=== PATIENT | female | born 1975 | race Hispanic/Latino ===

== ENCOUNTER 2019-01-10 03:38 | Emergency (ER) | payer SELFPAY ==
[~2019-01-10] VITALS: Ht 160 cm; Wt 73.0 kg
[~2019-01-10 03:38] MED LIST: LISINOPRIL10 MG PO
--- OUTSIDE RECORDS SUMMARY | 2019-01-10 03:40 | XMS REPORT | Continuity of Care Document ---
Author Author [facility] Address Unknown Phone Unavailable Care Team Providers Care Feller Seam Operator Name Role Phone [employer] Unavailable Unavailable Problems Problem Status Onset Date Classification Date Reported Comments Source TINEA CORPORIS Inactive 06/19/2014 Condition 06/19/2014 [facility] VIRAL ILLNESS Active 06/19/2014 Condition 06/19/2014 [facility] ALLERGIC RHINITIS Active 06/19/2014 Condition 06/19/2014 [facility] HYPERTENSION Active 06/19/2014 Condition 06/19/2014 [facility] Medications Medication Details Route Status Patient Instructions Ordering Provider Order Date Source LISINOPRIL-HYDROCHLOROTHIAZIDE 10-12.5 MG TABS 1 tablet daily Active 06/19/2014 [facility] Allergies, Adverse Reactions, Alerts No Known Medication Allergies Immunizations No Data Provided for This Section Results No Data Provided for This Section Pathology Reports No Data Provided for This Section Diagnostic Reports No Data Provided for This Section Consultation Notes No Data Provided for This Section Discharge Summaries No Data Provided for This Section History and Physicals No Data Provided for This Section Vital Signs Vital Sign Value Date Comments Source Weight 144.6 06/19/2014 [facility] Height 64 06/19/2014 [facility] Temperature Oral (F) 98.6 F 06/19/2014 [facility] Respitory Rate 24 06/19/2014 [facility] Heart Rate 62 06/19/2014 [facility] Systolic (mm Hg) 103 06/19/2014 [facility] Diastolic (mm Hg) 71 06/19/2014 [facility] Encounters Location Location Details Encounter Type Encounter Number Reason For Visit Attending Provider ADM Date DC Date Status Source [facility] Family [facility] Office Visit [id number] Luz Buck PA-C 06/19/2014 06/19/2014 [facility] Procedures No Data Provided for This Section Assessment and Plan No Data Provided for This Section Plan of Care No Data Provided for This Section Social History No Data Provided for This Section Family History No Data Provided for This Section Advance Directives No Data Provided for This Section Functional Status No Data Provided for This Section
--- OUTSIDE RECORDS SUMMARY | 2019-01-10 03:40 | XMS REPORT | Summary of Care ---
Author Author JAZMIN WAHL M.D. Organization Unknown Address Unknown Phone Unavailable Care Team Providers Care Varnish Melter Helper Name Role Phone JAZMIN WAHL M.D. Unavailable Unavailable TONI MCLAIN DO Unavailable Unavailable JAZMIN WAHL MD Unavailable Unavailable Unavailable Unavailable Functional Status Name Dates Details Functional status health issues are not documented Status: Name Dates Details Cognitive status health issues are not documented Status: Problems Name Dates Details Hypertension (401.9, I10) Status: Active Muscle spasm of back (724.8, M62.830) Status: Active Neck muscle spasm (728.85, M62.838) Status: Active Mood disorder (296.90, F39) Status: Active Bipolar affective disorder (296.80, F31.9) Status: Active Anxiety and depression (300.00, F41.9) Status: Active Medications Name Dates Details Lisinopril-hydroCHLOROthiazide 10-12.5 MG Oral Tablet Active Methocarbamol 500 MG Oral Tablet * Refills: 0 Active Thornton 5-325 MG Oral Tablet * Refills: 0 Active traMADol HCl - 50 MG Oral Tablet * Refills: 0 Active clonazePAM 1 MG Oral Tablet TAKE 1 TABLET TWICE DAILY NEEDED. * Quantity: 60 Refills: 2 WAHL M.D., ANDREZOJIE * Start : 15-Jun-2016 Active risperiDONE 2 MG Oral Tablet take 1/2 tablet twice daily * Quantity: 90 Refills: 0 WAHL M.D., SHAOJIE * Start : 29-Sep-2018 Active Divalproex Sodium 500 MG Oral Tablet Delayed Release TAKE 1 TABLET AT BEDTIME. * Quantity: 90 Refills: 0 WAHL M.D., ANDREZOJIE * Start : 29-Sep-2018 Active Allergies and Adverse Reactions Name Dates Details No Known Drug Allergies (Allergy) Status: Active Procedures Procedure Dates Details History of Shoulder Arthroscopy With Rotator Cuff Repair Completed Immunization Name Dates Details Immunizations not documented Family History Name Dates Details Family history of arthritis (V17.7, Z82.61) Comments: Family History Status: Active Family history of asthma (V17.5, Z82.5) Comments: Family History Status: Active Family history of gastric ulcer (V18.59, Z83.79) Comments: Family History Status: Active Family history of diabetes mellitus (V18.0, Z83.3) Comments: Family History Status: Active Family history of lung cancer (V16.1, Z80.1) Comments: Family History Status: Active Family history of hypertension (V17.49, Z82.49) Comments: Family History Status: Active Family history of cardiac disorder (V17.49, Z82.49) Comments: Family History Status: Active Family history of depression (V17.0, Z81.8) Comments: Family History Status: Active Family history of suicide attempt (V17.0, Z81.8) Comments: Family History Status: Active Family history of Bipolar 2 disorder (296.89, F31.81) Comments: Family History Status: Active Family history of Atypical schizophrenia (295.80, F20.3) Comments: Family History Status: Active Social History Name Dates Details - Status: Name Dates Details Former smoker Vital Signs Date Test Result Details [id number] BP Systolic 101 mm[Hg] Status: Comments: Location: LUE; Position: Sitting BP Diastolic 71 mm[Hg] Status: Comments: Location: LUE; Position: Sitting Height 63 in Status: Weight 146.375 lb Status: Body Mass Index Calculated 25.93 kg/m2 Status: Body Surface Area Calculated 1.69 m2 Status: Temperature 97.7 f Status: Comments: Method: Oral Heart Rate 80 /min Status: Comments: Location: L Radial; Quality: Normal Respiration Rate 16 /min Status: Comments: Quality: Normal O2 SAT 100 % Status: Comments: Source: Physical Findings 0 Status: Comments: Alcohol Screen - How many times in the past yr have you had 5 (for M) or 4 (for F) or 4 (for all > 65yrs) or more drinks in a day? Physical Findings 15 Status: Comments: PHQ-9 Adult Depression Screening Results Date Description Value Details Results not documented Plan of Care Name Dates Details Planned Observations Planned Goals not documented Planned Encounters Appointment; JAZMIN WAHL M.D. On: 11-Dec-2018 14:00 Appointment; JAZMIN WAHL M.D. On: 08-Mar-2019 13:30 Interventions Provided Medication Changes* clonazePAM 1 MG Oral Tablet - Renew * Divalproex Sodium 500 MG Oral Tablet Delayed Release - Renew * risperiDONE 2 MG Oral Tablet - Renew Plan* Discussed diagnosis, differential diagnosis, co morbidities, bio psychosocial factors, predisposing, precipitating and maintaining symptoms Depression and anxiety, hx of mood swings. family hx of bipolar, suicidal attempt in sisters. low tolerance to frustration, irritability. Mood disorder vs bipolar disorder. Was better on Haldol, found dosage is not enough. No EPS. Reported legs shaking during the day due to anxiety. not seem to have EPS related movement. * -- Increase risperidone 0.5mg BID--> 1 mg twice daily for bipolar. Patient has no EPS. * -- continue Depakote DR 500 mg Bedtime for mood stabilizing and sleep. may adjust the dose in the future. * -- Continue clonazepam 1mg 2xdaily prn due to anxiety. pt occasionally taking Thornton. Discussed the risks of Benzos, including abuse/dependence, causing and affecting driving. Advice not to combine Benzos with Ambien, opioids and alcohol. Educated about Benzos are not the long-term and first line treatment for anxiety. Plans to taper off when stable in the future. * -- psychotherapy referral on mindfulness, frustration tolerance, CBT on pain. * RTC 3m. Discussion/Summary* Progress made toward Goal moderate progress. * Additional notes and Recommendations. * Client will continue with counseling services. * Discussed the following with patient/family/other who verbally acknowledged and agrees to comply. Patient understands and will comply. Bio-psychosocial factors. Co-Morbidities. Alternative medication(s). Current medication(s). Risks/benefits. Side effects. Target symptoms. Treatment plan. Diagnosis. Instructions Name Dates Details Instructions not documented Encounters Appointment; JAZMIN WAHL M.D. Encounter Diagnosis: Problem not documented On: 10-Jan-2017 12:00 Appointment; JAZMIN WAHL M.D. Encounter Diagnosis: Problem not documented On: 27-Apr-2017 9:00 Appointment; JAZMIN WAHL M.D. Encounter Diagnosis: Problem not documented On: 10-May-2017 12:00 Appointment; JAZMIN WAHL M.D. Encounter Diagnosis: Problem not documented On: 05-Sep-2017 8:30 Appointment; JAZMIN WAHL M.D. Encounter Diagnosis: Problem not documented On: 26-Sep-2017 8:30 Appointment; JAZMIN WAHL M.D. Encounter Diagnosis: Problem not documented On: 19-Dec-2017 15:30 Appointment; JAZMIN WAHL M.D. Encounter Diagnosis: Problem not documented On: 29-Sep-2018 13:00 Appointment; JAZMIN WAHL M.D. Encounter Diagnosis: Problem not documented On: 09-Nov-2018 13:00 Appointment; JAZMIN WAHL M.D. Encounter Diagnosis: Problem not documented On: 06-Dec-2018 13:30
--- OUTSIDE RECORDS SUMMARY | 2019-01-10 03:40 | XMS REPORT | Continuity of Care Document ---
Author Author [facility] Organization [facility] Address Unknown Phone Unavailable Care Team Providers Care Stereoptic Projection Topographer Name Role Phone RADHA Buck, Luz PP Unavailable Insurance Providers Payer name Policy type / Coverage type Policy ID Covered libertarian ID Policy [place] - [place] - TRADITIONAL Encounters Encounter Performer Location Date Office Visit Luz Buck PA-C [facility] Jun 19, 2014 Problems Problem Effective Dates Problem Status TINEA CORPORIS Jun 19, 2014 Inactive VIRAL ILLNESS Jun 19, 2014 Active ALLERGIC RHINITIS Jun 19, 2014 Active HYPERTENSION Jun 19, 2014 Active Procedures Date Description Comments Jun 19, 2014 smoking status Former smoker Medications Medication Instructions Start Date Status LISINOPRIL-HYDROCHLOROTHIAZIDE 10-12.5 MG TABS 1 tablet daily Jun 19, 2014 Active Vital Signs Date Description Test Result Jun 19, 2014 weight E&M - 3141-9 WEIGHT 144.6 lb Jun 19, 2014 height E&M - 8302-2 HEIGHT 64 in Jun 19, 2014 temperature E&M TEMPERATURE 98.6 deg f Jun 19, 2014 respiratory rate E&M - 9279-1 RESP RATE 24 /min Jun 19, 2014 pulse rate E&M - 8867-4 PULSE RATE 62 /min Jun 19, 2014 blood pressure, systolic - 8480-6 BP SYSTOLIC 103 mm Hg Jun 19, 2014 blood pressure, diastolic - 8462-4 BP DIASTOLIC 71 mm Hg
--- OUTSIDE RECORDS SUMMARY | 2019-01-10 03:40 | XMS REPORT | Continuity of Care Document ---
Author Author [facility] Organization [facility] Address Unknown Phone Unavailable Care Team Providers Care Winder Helper Name Role Phone RADHA Buck, Luz PP Unavailable Insurance Providers Payer name Policy type / Coverage type Policy ID Covered constitution party ID Policy [place] - [place] - TRADITIONAL Encounters Encounter Performer Location Date Office Visit Luz Buck PA-C [facility] Jun 19, 2014 Problems Problem Effective Dates Problem Status TINEA CORPORIS Jun 19, 2014 Active VIRAL ILLNESS Jun 19, 2014 Active ALLERGIC [...]
[2019-01-10] MEDS ORDERED: SODIUM CHLORIDE 0.9% 1000ML 1,000 ML IV STA (03:52)
[2019-01-10] MEDS ORDERED: ONDANSETRON HCL INJ 2MG/ML 2ML 2 MG/ML VIAL IV ONE (04:00)
[2019-01-10] MEDS ORDERED: FAMOTIDINE 20 MG/2 ML VIAL IV ONE (04:00)
[2019-01-10] MEDS ORDERED: KETOROLAC TROMETHAMINE 30 MG/ML VIAL IV ONE (04:00)
[2019-01-10 04:28] LABS: BASOPHILS % 0.4 % (0.0-1.0); EOSINOPHILS % 0.1 % (0.0-6.0); HEMATOCRIT 37.5 % (34.2-44.1); HEMOGLOBIN 12.5 g/dL (12.0-16.0); LYMPHOCYTES # (AUTO) 2.4 (1.0-3.2); LYMPHOCYTES % 26.1 % (18.0-39.1); MEAN CORPUSCULAR HEMOGLOBIN 32.1 pg (28-32); MEAN CORPUSCULAR HGB CONC 33.3 g/dL (31-35); MEAN CORPUSCULAR VOLUME 96.4 fL (81-99); MONOCYTES # (AUTO) 0.6 (0.2-0.8); MONOCYTES % 6.3 % (4.4-11.3); NEUTROPHILS # (AUTO) 6.2 (2.1-6.9); NEUTROPHILS % 66.7 % (38.7-80.0); PLATELET COUNT 375 x10e3/uL (140-360); RED BLOOD COUNT 3.89 x10e6/uL (3.6-5.1); RED CELL DISTRIBUTION WIDTH 13.7 % (11.7-14.4)
[2019-01-10 04:29] LABS: BILIRUBIN,URINE NEGATIVE (NEGATIVE); COLOR,URINE ORANGE (YELLOW); KETONES,URINE TRACE (NEGATIVE); LEUKOCYTE ESTERASE ,URINE TRACE (NEGATIVE); NITRITE,URINE POSITIVE (NEGATIVE); PROTEIN,URINE DIPSTICK 1+ (NEGATIVE); URINE UROBILINOGEN 4 mg/dL (0.2 - 1)
[2019-01-10 04:36] LABS: CLARITY,URINE SL CLOUDY (CLEAR)
[2019-01-10 04:44] LABS: BACTERIA,URINE MANY /HPF; EPITHELIAL CELLS,URINE MODERATE /LPF; WBC,URINE (MAN) >50 /HPF (0-5)
[2019-01-10 04:55] LABS: ALANINE AMINOTRANSFERASE 24 IU/L (0-55); ALBUMIN/GLOBULIN RATIO 0.9 (0.8-2.0); ALKALINE PHOSPHATASE 84 IU/L (40-150); AMYLASE 82 U/L (25-125); ANION GAP 17.6 mmol/L (8-16); BLOOD UREA NITROGEN 14 mg/dL (7-26); BUN/CREATININE RATIO 18 (6-25); CALCIUM 9.9 mg/dL (8.4-10.2); CARBON DIOXIDE 22 mmol/L (22-29); CHLORIDE 105 mmol/L (98-107); CREATININE, SERUM 0.79 mg/dL (0.57-1.11); EST GLOMERULAR FILTRATION RATE > 60 ML/MIN (60-); GLUCOSE 101 mg/dL (74-118); LIPASE 24 U/L (8-78); POTASSIUM 3.6 mmol/L (3.5-5.1); SODIUM 141 mmol/L (136-145)
[2019-01-10] MEDS ORDERED: SODIUM CHLORIDE 0.9% 50ML 50 ML ONE (05:24)
[2019-01-10] MEDS ORDERED: IOPAMIDOL 370 MG/ML 200 ML INFUS..BTL INJ ONE (05:25)
--- NOTE | 2019-01-10 06:43 | NUR ---
report given to jadyn granados.
[2019-01-10] MEDS ORDERED: CEFTRIAXONE SOD 1 GM VIAL IV ONE (06:45)
--- NOTE | 2019-01-10 06:45 | Diagnostic Imaging Report ---
EXAM: CT Abdomen and Pelvis WITH contrast INDICATION: Diffuse abdominal pain COMPARISON: None. TECHNIQUE: Abdomen and pelvis were scanned utilizing a multidetector helical scanner from the lung base to the pubic symphysis after administration of IV contrast. Coronal and sagittal reformations were obtained. Routine protocol was performed. Scan was performed when during portal venous phase. IV CONTRAST: 100 mL of Isovue 370 ORAL CONTRAST: None COMPLICATIONS: None RADIATION DOSE: Total DLP: 336 mGy*cm Estimated effective dose: (DLP x 0.015 x size factor) mSv CTDIvol has been reviewed. It is below the limits set by the Radiation Protocol Committee (RPC). Dose modulation, iterative reconstruction, and/or weight based adjustment of the mA/kV was utilized to reduce the radiation dose to as low as reasonably achievable. FINDINGS: LINES and TUBES: None. LOWER THORAX: Unremarkable HEPATOBILIARY: No focal hepatic lesions. No biliary ductal dilation. GALLBLADDER: No radio-opaque stones or sludge. No wall thickening. SPLEEN: No splenomegaly. PANCREAS: No focal masses or ductal dilatation. ADRENALS: No adrenal nodules KIDNEYS/URETERS: Kidneys enhance symmetrically. No hydronephrosis. No cystic or solid mass lesions. No stones. GI TRACT: No abnormal distention, wall thickening, or evidence of bowel obstruction. There are diverticula within the colon without evidence of diverticulitis. Appendix is normal. PELVIC ORGANS/BLADDER: Calcified degenerative uterine fibroids. LYMPH NODES: No lymphadenopathy. VESSELS: Unremarkable. PERITONEUM / RETROPERITONEUM: No free air or fluid. BONES: Unremarkable. SOFT TISSUES: Unremarkable. IMPRESSION: 1. Uterine fibroids. 2. Colonic diverticulosis without diverticulitis. Signed by: Ramiro Hunt DO on 01/10/2019 6:41 AM
[2019-01-10] MEDS ORDERED: CEFTRIAXONE SOD 1 GM/NS 50 ML 50 ML IV ONE (07:00)
== END 2019-01-10 07:10 | disposition home or self-care (01) ==
LOC: ER 03:38
DX: R10.84 Generalized abdominal pain (principal); R11.0 Nausea; N30.91 Cystitis, unspecified with hematuria; K59.00 Constipation, unspecified; K29.20 Alcoholic gastritis without bleeding
CPT/HCPCS: 36415; 74177; 80053; 81001; 82150; 83690; 84702; 85025; 99284; J0696; J1885; J2405; J7030; Q9967